=== PATIENT | male | born 1985 | race Caucasian/White ===

== ENCOUNTER 2016-11-22 09:28 | Day surgery (SDC) | payer OTHER ==
[~2016-11-22 09:28] MED LIST: CEFAZOLIN 1 GM/D5W RTU 1 GM/50 ML RTUPB IV PRN; DEXAMETHASONE SOD PHOSPHATE INJ 4 MG/1 ML VIAL ONE; LACTATED RINGERS 1000 ML IV PRN; LIDOCAINE 0.5% INJ-PF (5 MG/ML) 50 ML SDV SUBCUT PRN; LIDOCAINE 2% INJ-PF (20 MG/ML) 10 ML AMPUL ONE; MORPHINE SULFATE 10 MG/ML INJ IV PRN; ONDANSETRON HCL INJ/PF 4 MG/2 ML SDV IV PRN; ONDANSETRON HCL INJ/PF 4 MG/2 ML SDV ONE
[2016-11-22] MEDS ORDERED: MIDAZOLAM 2 MG/2 ML INJ ONE ×2 (10:26→11:37)
[2016-11-22] MEDS ORDERED: RINGERS SOLUTION,LACTATED 500 ML IV ONE (11:00)
[2016-11-22] MEDS ORDERED: BUPIVACAINE HCL 0.25 % INJ/PF (2.5 MG/1 ML) 30 ML VIAL ONE (11:05)
[2016-11-22] MEDS ORDERED: FENTANYL CITRATE INJ/PF 100 MCG/2 ML AMPUL ONE ×2 (11:37→14:12)
[2016-11-22] MEDS ORDERED: HYDROMORPHONE HCL INJ/PF 2 MG/ML AMPULE ONE (11:37)
[2016-11-22] MEDS ORDERED: PROPOFOL INJ 200 MG/20 ML VIAL IV ONE (11:38)
[2016-11-22] MEDS ORDERED: ACETAMINOPHEN 100 ML IV ONE (11:38)
[2016-11-22] MEDS ORDERED: FENTANYL CITRATE INJ/PF 100 MCG/2 ML AMPUL IV PRN ×3 (12:34)
[2016-11-22] MEDS ORDERED: DIPHENHYDRAMINE HCL 50 MG/ML VIAL IV PRN (12:34)
[2016-11-22] MEDS ORDERED: MEPERIDINE HCL/PF INJ 25 MG/1 ML DISP.SYRIN IV PRN (12:34)
[2016-11-22] MEDS ORDERED: PROMETHAZINE HCL INJ 25 MG/1 ML VIAL IV PRN (12:34)
[2016-11-22] MEDS ORDERED: CEFAZOLIN INJ 1 GM VIAL ONE (13:03)
[2016-11-22] MEDS ORDERED: OXYCODONE-ACETAMINOPHEN 5-325 MG TABLET PO PRN (14:37)
[2016-11-22] MEDS ORDERED: HYDROMORPHONE HCL INJ/PF 2 MG/ML AMPULE IV PRN (14:37)
[2016-11-22 15:55] VITALS: BP 121/71
--- NOTE | 2016-11-22 17:53 | OPERATIVE REPORT E ---
Operative Report NAME: ISABELLA IBARRA : 1985 AGE: 31Y DATE OF SURGERY: 11/22/2016 ROOM: PREOPERATIVE DIAGNOSIS: 1. Left varicocele. 2. Left intermittent torsion of the testicle. POSTOPERATIVE DIAGNOSIS: 1. Left varicocele. 2. Left intermittent torsion of the testicle. OPERATION: 1. Left microscopic varicocelectomy. 2. Left orchiopexy. SURGEON: RICARDO HICKS D.O. ASSOCIATE BUYER: Jarek Turner M.D. ANESTHESIA: General. IV FLUIDS: 800 mL lactated Ringer's. ESTIMATED BLOOD LOSS: 5 mL. URINE OUTPUT: 0. COMPLICATIONS: None. SPECIMENS: None. DRAINS: None. IMPLANTS: None. FINDINGS: Left varicocele. INDICATIONS FOR PROCEDURE: The patient is a 31-year-old male with history of left-sided testicular pain in the presence of a varicocele and intermittent torsion on that side. He was counseled on the risks, benefits, and side effects of a left-sided varicocelectomy and left orchiopexy and consented to proceed. PROCEDURE: The patient was met in the preoperative holding area. Risks, benefits, and side effects of a left-sided varicocelectomy and left orchiopexy were again reviewed, and the patient consented to proceed. He was brought to the operative theatre and placed on the table in supine position where general anesthesia was induced. He was then sterilely prepped and draped in the usual fashion. A timeout was performed to ensure proper patient, proper procedure, proper laterality and that preoperative antibiotics had been administered. With all in agreement, we proceeded. We began by making a 4 cm incision just superior and lateral to the pubic tubercle on the left. This was deepened down to the external oblique fascia which was then opened in the direction of it fibers with Metzenbaum scissors. The cord was dissected from the surrounding canal with blunt dissection. We then isolated the cord with a [place] drain and entered the external spermatic fascia with electrocautery, and then in the internal spermatic fascia, we identified 1 dilated vein, and he had a complex artery in the cord. The 1 vein was sequentially dilated and artery identified with a Doppler ultrasound. There was 1 perforating vein that was identified and ligated as well from the inguinal canal. A cord block was performed with 0.25% Marcaine and the cord returned to the canal. External oblique fascia was closed with a Vicryl suture in a running fashion. Then 0.25% Marcaine was used to inject the fascia. We then used 3-0 Vicryl sutures to reapproximate David's fascia and 4-0 Monocryl suture in a running subcuticular fashion to close the skin incision. We then turned our attention to the orchiopexy. A transverse incision approximately 3 cm in length was made overlying the left testicle. This was deepened down into the tunica vaginalis and testicle delivered. We then 3-0 Ethibond suture to perform orchiopexy. It was placed through the tunica albuginea of the testicle and then through the subcutaneous tissue of the dermal layer of the scrotum, insuring the buttonhole of the scrotum. The testicle was then returned to the scrotum and the sutures tied in place. Hemostasis was obtained with electrocautery. Dart[place] was closed with a running 3-0 Vicryl in a running fashion, and then the scrotal skin was closed with 4-0 Monocryl in a running horizontal mattress fashion. Both skin incisions were sealed with Dermabond, and the fluff gauze and scrotal support were placed. The patient was awakened and taken to the PACU in good condition. At the end of the case, needle, instrument, and sponge counts were correct. DICTATING PHYSICIAN: RICARDO HICKS D.O. [id number] PHY#: [id number] ID: [id number] JOB#: [id number] ACCT: [id number] cc:RICARDO HICKS D.O. >
== END 2016-11-22 15:55 | disposition home or self-care (01) ==
LOC: OROUT 09:28
PROVIDERS: ATTEND Surgery
PROC: 0VSB0ZZ Reposition Left Testis, Open Approach (ICD-10-PCS; 2016-11-22)
PROC: 0VBG0ZZ Excision of Left Spermatic Cord, Open Approach (ICD-10-PCS; principal; 2016-11-22 11:30)
DX: I86.1 Scrotal varices (principal); F17.210 Nicotine dependence, cigarettes, uncomplicated; Z79.1 Long term (current) use of non-steroidal anti-inflammatories (NSAID)
CPT/HCPCS: 55530; 54640; 94640; J2250; J0690 ×2; J1100; J3010; J1170; J2405; J2704; J3490; J0131; 860